=== PATIENT | female | born 1955 | race Caucasian/White ===

== ENCOUNTER → 2017-06-21 | Outpatient (CLI) | payer OTHER ==
[~2017-06-21] MED LIST: ASPIR 8181 MG PO; CLOBETASOL PROP15 GM VAG; GLUCOPHAGE XR500 MG PO; LISINOPRIL20 MG PO; SIMVASTATIN40 MG PO; SYNTHROID88 MCG PO; TRULICITY0.75 MG/0. SUBQ; VITAMIN D1000 UNI1 PO
== END ==
LOC: RAD 11:51
DX: Z12.31 Encounter for screening mammogram for malignant neoplasm of breast (principal)

== ENCOUNTER → 2017-07-16 | Outpatient (CLI) | payer OTHER ==
[~2017-07-16] VITALS: Ht 149.9 cm; Wt 61.2 kg
--- NOTE | ~2017-07-16 | S ---
[facility] [place] [address] SURGICAL PATH RPT PROCEDURE Name: ABHIJIT LOVE Room #: [facility].#: [id number] Admission: 07/16/17 Date of : 57 Discharge: Report #: [id number] Path Case #: [id number] PATHOLOGY REPORT COLLECTION DATE: 07/16/2017 RECEIVED DATE: 07/16/2017 SUBMITTING PHYS: Dr. Aroldo Grajeda OTHER PHYS: Ruddy Ag APRN SPECIMEN(S) RECEIVED: A.Cecal polyp biopsy B.Ascending colon polyp biopsy C.Transverse colon polypectomy * * * * * * * * * * * * FINAL DIAGNOSIS: A. Polyp, cecal polyp, endoscopic biopsy: - Inflamed hyperplastic polyp with reactive changes. - Negative for dysplasia. B. Polyp, ascending colon polyp, endoscopic biopsy: - Tubular adenoma. - Negative for high grade dysplasia. C. Polyp, transverse colon polyp, endoscopic biopsy: - Tubular adenoma. - Unremarkable mucosa at cauterized margins / stalk base. (IUV:mml; 07/17/2017) PATHOLOGIST: Fiordaliza Heath M.D. REPORT ELECTRONICALLY SIGNED BY: Fiordaliza Heath M.D. DATE/TIME: 07/17/2017 14:40 * * * * * * * * * * * * GROSS PATHOLOGY: A. Received in formalin labeled "Abhijit Love, cecal polyp biopsy," is a segment of britt soft tissue measuring 0.6 x 0.3 x 0.2 cm in maximum dimension. The specimen is submitted entirely in cassette A1. B. Received in formalin labeled, "Abhijit Love, and ascending colon polyp biopsy," are 4 fragments of britt soft tissue measuring between 0.3 x 0.2 x 0.1 cm and 0.4 x 0.3 x 0.2 cm. They are entirely submitted in cassette B1. C. The specimen is received in formalin, labeled "Abhijit Love, transverse colon polypectomy," and consists of a polypoid and pedunculated segment of brown-pink soft tissue measuring 0.8 x 0.5 x 0.4 cm. It is inked, bisected, and entirely submitted in C1. (SDY; 07/16/2017) [address] [address] SURGICAL PATH RPT PROCEDURE Name: ABHIJIT LOVE Room #: [facility].#: [id number] Admission: 07/16/17 Date of : 57 Discharge: Report #: [id number] Path Case #: [id number] CLINICAL HISTORY: Family history colon cancer, screening Colon polyps, diverticulosis, internal hemorrhoids INITIAL CPT CODE(S): A; 48578 B; 14836 C; 32581 Professional services performed by [facility] at [facility] [address] [place] [address] Technical services performed by [facility] at [address] [place] [address]., [address], [place] [address]. [facility] [address] [place] [address] PHONE: [phone] DIRECTOR: Onofre Smith M.D. * * * END OF REPORT * * *
== END | disposition home or self-care (01) ==
LOC: GI 08:11
DX: Z09 Encounter for follow-up examination after completed treatment for conditions other than malignant neoplasm (principal); Z86.010 Personal history of colon polyps; D12.2 Benign neoplasm of ascending colon; D12.3 Benign neoplasm of transverse colon; K63.5 Polyp of colon; K57.30 Diverticulosis of large intestine without perforation or abscess without bleeding; K64.8 Other hemorrhoids; I10 Essential (primary) hypertension; E78.00 Pure hypercholesterolemia, unspecified; E11.9 Type 2 diabetes mellitus without complications; E03.9 Hypothyroidism, unspecified; Z98.41 Cataract extraction status, right eye; Z80.0 Family history of malignant neoplasm of digestive organs; Z98.890 Other specified postprocedural states; Z79.899 Other long term (current) drug therapy; Z88.8 Allergy status to other drugs, medicaments and biological substances; Z79.82 Long term (current) use of aspirin
CPT/HCPCS: 62110; 62900

== ENCOUNTER → 2018-04-25 | Outpatient (CLI) | payer OTHER | LOC: CAT 08:48 | DX: Z13.6 Encounter for screening for cardiovascular disorders (principal); E78.00 Pure hypercholesterolemia, unspecified ==

== ENCOUNTER → 2018-07-09 | Outpatient (CLI) | payer OTHER | LOC: RAD 12:24 | DX: Z12.31 Encounter for screening mammogram for malignant neoplasm of breast (principal) ==

== ENCOUNTER → 2019-09-16 | Outpatient (CLI) | payer OTHER | LOC: RAD 08-11 11:53 | DX: Z12.31 Encounter for screening mammogram for malignant neoplasm of breast (principal) ==

== ENCOUNTER → 2019-10-07 | Outpatient (CLI) | payer OTHER ==
[2019-10-07 12:48] LABS: ABSOLUTE NEUTROPHILS 5.5 thou/uL (1.4-8.2); BASOPHILS 1.2 % (0.0-2.0); EOSINOPHILS 4.9 % (0.0-3.0); HEMATOCRIT 37.1 % (37.0-47.0); HEMOGLOBIN 12.4 gm/dL (12.0-15.0); LYMPHOCYTES 23.3 % (24.0-44.0); MCH 29.9 pg (26.0-34.0); MCHC 33.4 g/dL (28.0-37.0); MCV 89.5 fL (80.0-100.0); MONOCYTES 8.8 % (1.0-8.0); PLATELET COUNT 315 thou/uL (150-400); POLYS 61.8 % (36.0-66.0); RBC 4.14 mil/uL (4.20-5.00); RDW 12.2 % (10.5-14.5); WBC 8.9 thou/uL (4.0-11.0)
[2019-10-07 13:01] LABS: ALBUMIN 3.9 g/dL (3.4-5.0); ANION GAP 6 mmol/L (7-16); BUN 20 mg/dL (7-18); CALCIUM 8.7 mg/dL (8.5-10.1); CHLORIDE 103 mmol/L (98-107); CHOLESTEROL 144 mg/dL (<200); CO2 29 mmol/L (21-32); CREATININE 0.9 mg/dL (0.6-1.0); GLUCOSE 93 mg/dL (74-106); HDL CHOLESTEROL 56 mg/dL (>40); LDL CHOLESTEROL 64 mg/dL (<100); POTASSIUM 4.4 mmol/L (3.5-5.1); SGOT 27 U/L (15-37); SGPT 51 U/L (30-65); SODIUM 138 mmol/L (136-145); TC:HDL 2.6 Ratio (Not establshd); TOTAL BILIRUBIN 0.7 mg/dL (0.2-1.0); TRIGLYCERIDE 122 mg/dL (<150); VLDL 24 mg/dL (<40)
== END ==
LOC: LABMALL 12:12
PROVIDERS: ATTEND Nurse Practitioner
DX: E11.9 Type 2 diabetes mellitus without complications (principal)

== ENCOUNTER → 2019-10-27 | Outpatient (CLI) | payer OTHER | LOC: ULTRA 11:05 | PROVIDERS: ATTEND Nurse Practitioner | DX: K76.0 Fatty (change of) liver, not elsewhere classified (principal); R74.8 Abnormal levels of other serum enzymes ==

== ENCOUNTER → 2020-01-13 | Outpatient (CLI) | payer OTHER | LOC: SJCVCIMAG 11:14 | PROVIDERS: ATTEND Nurse Practitioner | DX: I87.2 Venous insufficiency (chronic) (peripheral) (principal); R29.898 Other symptoms and signs involving the musculoskeletal system; M79.604 Pain in right leg; M79.605 Pain in left leg ==

== ENCOUNTER → 2020-02-02 | Outpatient (CLI) | payer OTHER ==
[2020-02-02 13:55] LABS: PROT/CREAT RATIO 0.2; URINE CREATININE-RANDOM* 69.4 mg/dL
== END ==
LOC: LABMALL 13:10
PROVIDERS: ATTEND Internal Medicine Nephrology
DX: N18.2 Chronic kidney disease, stage 2 (mild) (principal)

== ENCOUNTER → 2020-02-04 | Outpatient (CLI) | payer OTHER | LOC: LAB 15:46 | PROVIDERS: ATTEND Internal Medicine Gastroenterology | DX: R79.9 Abnormal finding of blood chemistry, unspecified (principal) ==

== ENCOUNTER → 2020-02-17 | Outpatient (CLI) | payer OTHER | LOC: SJCVCIMAG 08:08 | PROVIDERS: ATTEND Internal Medicine Cardiovascular Disease | DX: R53.83 Other fatigue (principal); E11.9 Type 2 diabetes mellitus without complications ==

== ENCOUNTER → 2020-05-16 | Outpatient (CLI) | payer OTHER ==
[2020-05-16 12:54] LABS: URINE BILIRUBIN NEGATIVE (Negative); URINE BLOOD TRACE (Negative); URINE CLARITY CLEAR; URINE COLOR YELLOW; URINE GLUCOSE-RANDOM* NEGATIVE (Negative); URINE KETONES NEGATIVE (Negative); URINE LEUKOCYTES-REFLEX TRACE (Negative); URINE NITRITE-REFLEX NEGATIVE (Negative); URINE PROTEIN (DIPSTICK) NEGATIVE (Negative); URINE SPECIFIC GRAVITY >= 1.030 (1.005-1.035); URINE UROBILINOGEN 0.2 E.U./dl (0.2-1.0)
[2020-05-16 13:07] LABS: ABSOLUTE NEUTROPHILS 5.6 thou/uL (1.4-8.2); HEMOGLOBIN 11.8 gm/dL (12.0-15.0)
[2020-05-16 13:08] LABS: EOSINOPHILS 4.8 % (0.0-3.0); HEMATOCRIT 34.6 % (37.0-47.0); LYMPHOCYTES 29.4 % (24.0-44.0); MCH 30.2 pg (26.0-34.0); MCV 88.7 fL (80.0-100.0); MONOCYTES 7.6 % (1.0-8.0); PLATELET COUNT 350 thou/uL (150-400); POLYS 57.2 % (36.0-66.0); RDW 12.2 % (10.5-14.5); WBC 9.8 thou/uL (4.0-11.0)
[2020-05-16 13:32] LABS: ANION GAP 10 mmol/L (7-16); BUN 26 mg/dL (7-18); CALCIUM 8.5 mg/dL (8.5-10.1); CHLORIDE 99 mmol/L (98-107); CO2 26 mmol/L (21-32); CREATININE 1.1 mg/dL (0.6-1.0); GLUCOSE 99 mg/dL (74-106); POTASSIUM 3.7 mmol/L (3.5-5.1); SGOT 29 U/L (15-37); SGPT 58 U/L (14-59); SODIUM 135 mmol/L (136-145); TOTAL BILIRUBIN 0.5 mg/dL (0.2-1.0); TOTAL PROTEIN 7.7 g/dL (6.4-8.2)
[2020-05-16 13:49] LABS: CHOLESTEROL 174 mg/dL (<200); HDL CHOLESTEROL 59 mg/dL (>40); LDL CHOLESTEROL 81 mg/dL (<100); TC:HDL 2.9 Ratio (Not establshd); TRIGLYCERIDE 174 mg/dL (<150); VLDL 35 mg/dL (<40)
[2020-05-16 23:06] LABS: GLYCOHEMOGLOBIN (HGB A1C) 7.5 % (4.8-5.6)
== END ==
LOC: LAB 12:07
PROVIDERS: ATTEND Nurse Practitioner
DX: I10 Essential (primary) hypertension (principal); E11.9 Type 2 diabetes mellitus without complications

== ENCOUNTER → 2020-06-06 | Outpatient (CLI) | payer OTHER ==
[2020-06-06 13:52] LABS: URINE BILIRUBIN NEGATIVE (Negative); URINE BLOOD 1+ (Negative); URINE CLARITY CLEAR; URINE COLOR YELLOW; URINE GLUCOSE-RANDOM* NEGATIVE (Negative); URINE KETONES NEGATIVE (Negative); URINE LEUKOCYTES-REFLEX TRACE (Negative); URINE PROTEIN (DIPSTICK) NEGATIVE (Negative); URINE SPECIFIC GRAVITY >= 1.030 (1.005-1.035); URINE UROBILINOGEN 0.2 E.U./dl (0.2-1.0)
[2020-06-06 14:10] LABS: URINE NITRITE-REFLEX POSITIVE (Negative)
[2020-06-06 14:11] LABS: CASTS None Seen /LPF (None Seen); SQUAMOUS 0-3 Few /LPF (0-3)
[2020-06-06 14:12] LABS: BACTERIA-REFLEX >30 Many /HPF (None Seen); CRYSTALS None Seen /LPF (None Seen); URINE RBC 0-2 Rare /HPF (0-2); URINE WBC-REFLEX 6-15 Few /HPF (0-5)
== END ==
LOC: LAB 12:42
PROVIDERS: ATTEND Nurse Practitioner
DX: R35.0 Frequency of micturition (principal)

== ENCOUNTER → 2020-08-30 | Outpatient (CLI) | payer OTHER | LOC: RAD 13:12 | PROVIDERS: ATTEND Nurse Practitioner | DX: Z12.31 Encounter for screening mammogram for malignant neoplasm of breast (principal) ==

== ENCOUNTER → 2020-09-09 | Outpatient (CLI) | payer OTHER ==
[2020-09-09 16:51] LABS: EOSINOPHILS 5.4 % (0.0-3.0); HEMATOCRIT 34.6 % (37.0-47.0); HEMOGLOBIN 11.7 gm/dL (12.0-15.0); LYMPHOCYTES 24.1 % (24.0-44.0); MCH 29.7 pg (26.0-34.0); MCHC 33.6 g/dL (28.0-37.0); MCV 88.4 fL (80.0-100.0); MONOCYTES 9.2 % (1.0-8.0); PLATELET COUNT 344 thou/uL (150-400); POLYS 60.3 % (36.0-66.0); RBC 3.92 mil/uL (4.20-5.00); RDW 12.4 % (10.5-14.5); WBC 8.2 thou/uL (4.0-11.0)
[2020-09-09 17:06] LABS: ALBUMIN 3.6 g/dL (3.4-5.0); ANION GAP 12 mmol/L (7-16); BUN 19 mg/dL (7-18); CALCIUM 8.9 mg/dL (8.5-10.1); CHLORIDE 105 mmol/L (98-107); CHOLESTEROL 165 mg/dL (<200); CO2 24 mmol/L (21-32); CREATININE 0.9 mg/dL (0.6-1.0); GLUCOSE 105 mg/dL (74-106); HDL CHOLESTEROL 54 mg/dL (>40); LDL CHOLESTEROL 72 mg/dL (<100); SGOT 42 U/L (15-37); SGPT 72 U/L (30-65); SODIUM 141 mmol/L (136-145); TC:HDL 3.1 Ratio (Not establshd); TOTAL BILIRUBIN 0.7 mg/dL (0.2-1.0); TOTAL PROTEIN 7.2 g/dL (6.4-8.2); TRIGLYCERIDE 197 mg/dL (<150); VLDL 39 mg/dL (<40)
[2020-09-10 04:06] LABS: GLYCOHEMOGLOBIN (HGB A1C) 7.1 % (4.8-5.6)
== END ==
LOC: LAB 15:23
PROVIDERS: ATTEND Nurse Practitioner
DX: E11.9 Type 2 diabetes mellitus without complications (principal); E03.9 Hypothyroidism, unspecified; R74.8 Abnormal levels of other serum enzymes

== ENCOUNTER → 2020-12-08 | Outpatient (CLI) | payer OTHER ==
[2020-12-08 14:35] LABS: ABSOLUTE NEUTROPHILS 4.8 thou/uL (1.4-8.2); BASOPHILS 1.1 % (0.0-2.0); EOSINOPHILS 6.6 % (0.0-3.0); HEMATOCRIT 34.2 % (37.0-47.0); HEMOGLOBIN 11.7 gm/dL (12.0-15.0); LYMPHOCYTES 25.7 % (24.0-44.0); MCH 30.4 pg (26.0-34.0); MCHC 34.2 g/dL (28.0-37.0); MCV 88.9 fL (80.0-100.0); MONOCYTES 8.4 % (1.0-8.0); PLATELET COUNT 335 thou/uL (150-400); POLYS 58.2 % (36.0-66.0); RBC 3.85 mil/uL (4.20-5.00); RDW 12.5 % (10.5-14.5); WBC 8.2 thou/uL (4.0-11.0)
[2020-12-08 14:45] LABS: ALBUMIN 3.6 g/dL (3.4-5.0); CALCIUM 8.9 mg/dL (8.5-10.1); POTASSIUM 4.8 mmol/L (3.5-5.1); TOTAL BILIRUBIN 0.7 mg/dL (0.2-1.0); TOTAL PROTEIN 7.2 g/dL (6.4-8.2)
[2020-12-08 14:51] LABS: INR 0.95; PROTIME 10.4 Seconds (10.5-12.1)
== END ==
LOC: ULTRA 12-05 11:42
PROVIDERS: ATTEND Internal Medicine Gastroenterology
DX: K76.0 Fatty (change of) liver, not elsewhere classified (principal)

== ENCOUNTER → 2021-02-07 | Outpatient (CLI) | payer OTHER ==
[2021-02-07 08:56] LABS: URINE BILIRUBIN NEGATIVE (Negative); URINE BLOOD 1+ (Negative); URINE COLOR YELLOW; URINE GLUCOSE-RANDOM* NEGATIVE (Negative); URINE KETONES NEGATIVE (Negative); URINE LEUKOCYTES 2+ (Negative); URINE NITRITE POSITIVE (Negative); URINE PROTEIN (DIPSTICK) NEGATIVE (Negative); URINE SPECIFIC GRAVITY 1.025 (1.005-1.035); URINE UROBILINOGEN 0.2 E.U./dl (0.2-1.0)
[2021-02-07 08:57] LABS: ABSOLUTE NEUTROPHILS 4.3 thou/uL (1.4-8.2); BASOPHILS 1.1 % (0.0-2.0); EOSINOPHILS 6.2 % (0.0-3.0); HEMATOCRIT 31.5 % (37.0-47.0); HEMOGLOBIN 10.9 gm/dL (12.0-15.0); LYMPHOCYTES 24.6 % (24.0-44.0); MCH 30.7 pg (26.0-34.0); MCHC 34.7 g/dL (28.0-37.0); MCV 88.4 fL (80.0-100.0); MONOCYTES 8.7 % (1.0-8.0); PLATELET COUNT 279 thou/uL (150-400); POLYS 59.4 % (36.0-66.0); RBC 3.57 mil/uL (4.20-5.00); RDW 12.1 % (10.5-14.5); URINE CLARITY SL HAZY; WBC 7.3 thou/uL (4.0-11.0)
[2021-02-07 09:08] LABS: SQUAMOUS 0-3 Few /LPF (0-3)
[2021-02-07 09:09] LABS: ALBUMIN 3.3 g/dL (3.4-5.0); CALCIUM 8.5 mg/dL (8.5-10.1); CASTS None Seen /LPF (None Seen); MUCUS 0-3 Light strn/LPF (None Seen); PHOSPHORUS 3.2 mg/dL (2.6-4.7); POTASSIUM 3.9 mmol/L (3.5-5.1); URINE RBC 1-2 Rare /HPF (NONE SEEN); URINE WBC 6-15 Few /HPF (NONE SEEN)
[2021-02-07 09:10] LABS: BACTERIA >30 Many /HPF (None Seen); CRYSTALS None Seen /LPF (None Seen)
[2021-02-07 09:12] LABS: PROT/CREAT RATIO 0.1; URINE CREATININE-RANDOM* 95.3 mg/dL; URINE PROTEIN-RANDOM* 7.5 mg/dL (<11.9)
== END ==
LOC: LAB 08:19
PROVIDERS: ATTEND Internal Medicine Nephrology
DX: I12.9 Hypertensive chronic kidney disease with stage 1 through stage 4 chronic kidney disease, or unspecified chronic kidney disease (principal); N18.2 Chronic kidney disease, stage 2 (mild)

== ENCOUNTER 2021-04-13 22:35 | Emergency (ER) | payer OTHER ==
[~2021-04-13] VITALS: Ht 149.9 cm; Wt 65.8 kg
[2021-04-14] MEDS ORDERED: DOXYCYCLINE 10100 MG PO ×2 (00:15→00:30)
[2021-04-14 00:38] VITALS: BP 168/87
== END 2021-04-14 00:39 | disposition home or self-care (01) ==
LOC: ER 22:35
DX: S01.412A Laceration without foreign body of left cheek and temporomandibular area, initial encounter (principal); S01.21XA Laceration without foreign body of nose, initial encounter; I10 Essential (primary) hypertension; E11.9 Type 2 diabetes mellitus without complications; E78.5 Hyperlipidemia, unspecified; E03.9 Hypothyroidism, unspecified; Z98.890 Other specified postprocedural states; Z79.82 Long term (current) use of aspirin; Z79.84 Long term (current) use of oral hypoglycemic drugs; Z79.899 Other long term (current) drug therapy; Z88.1 Allergy status to other antibiotic agents; W54.0XXA Bitten by dog, initial encounter; Y93.89 Activity, other specified; Y92.89 Other specified places as the place of occurrence of the external cause; Y99.8 Other external cause status